=== PATIENT | female | born 1995 | race Hispanic/Latino ===

== ENCOUNTER 2016-09-06 08:13 | Emergency (ER) | payer OTHER ==
[~2016-09-06] VITALS: Ht 160 cm; Wt 74.4 kg
[2016-09-06] MEDS ORDERED: BIRTH CONTROL MEDS (08:39)
[2016-09-06] MEDS ORDERED: ONDANSETRON 4MG/2ML VIAL (J2405) IV ONE (09:15)
[2016-09-06] MEDS ORDERED: NS 1,000 ML IV ONE (09:15)
[2016-09-06] MEDS ORDERED: KETOROLAC 30 MG/ML VIAL (J1885) IV ONE (09:15)
[2016-09-06 09:29] LABS: BASO % 0.3 % (0.0-1.0); EOS % 0.7 % (0.0-3.0); LARGE UNSTAINED CELL # 0.1 K/mm3 (0.0-0.4); LARGE UNSTAINED CELL % 1.4 % (0.0-4.0); LYMPH # 2.2 K/mm3 (1.5-6.5); LYMPH % 34.6 % (24.0-44.0); MEAN CORPUSCULAR HEMOGLOBIN 29.1 pg (27.0-33.0); MEAN CORPUSCULAR HGB CONC 32.5 g/dl (32.0-36.5); MEAN CORPUSCULAR VOLUME 89.6 fl (80.0-96.0); MONO # 0.3 K/mm3 (0.0-0.8); MONO % 5.5 % (0.0-5.0); NEUTROPHILS # 3.6 K/mm3 (1.8-7.7); NEUTROPHILS % 57.5 % (36.0-66.0); PLATELET COUNT, AUTOMATED 293 k/mm3 (150-450); RED CELL DISTRIBUTION WIDTH 13.5 % (11.5-14.5); WHITE BLOOD COUNT 6.2 K/mm3 (4.0-10.0)
[2016-09-06 09:44] LABS: ALBUMIN 3.7 GM/DL (3.2-5.2); ALBUMIN/GLOBULIN RATIO 1.03 (1.00-1.93); ALKALINE PHOSPHATASE 60 U/L (45-117); ALT/SGPT 30 U/L (12-78); ANION GAP 8 MEQ/L (8-16); AST/SGOT 16 U/L (15-37); BILIRUBIN,TOTAL 0.5 MG/DL (0.2-1.0); BLOOD UREA NITROGEN 12 MG/DL (7-18); CALCIUM LEVEL 8.2 MG/DL (8.5-10.1); CARBON DIOXIDE LEVEL 27 MEQ/L (21-32); CHLORIDE LEVEL 106 MEQ/L (98-107); CREATININE FOR GFR 0.59 MG/DL (0.55-1.02); GLOMERULAR FILTRATION RATE > 60.0 (>60); GLUCOSE, FASTING 93 MG/DL (70-105); POTASSIUM SERUM 3.6 MEQ/L (3.5-5.1); SODIUM LEVEL 141 MEQ/L (136-145); TOTAL PROTEIN 7.3 GM/DL (6.4-8.2)
--- NOTE | 2016-09-06 10:18 | REP ---
Clinical: Pelvic pain and abnormal vaginal bleeding . Technique: Transabdominal pelvic ultrasound followed by transvaginal examination for better evaluation of the endometrium and adnexa with color Doppler evaluation of the ovaries. Findings: Bladder is collapsed . The uterus has a subseptate contour and appearance measuring 7.9 x 4.0 x 6.1 cm. The visualized right endometrial complex measures 7.3 mm thickness and the left endometrial complex measures 5.8 mm thickness. No discrete uterine or endometrial abnormalities are appreciated. Bilateral ovaries are normal in appearance and vascularity without evidence for torsion. Right ovary measures 4.2 x 2.3 x 3.4 cm ; R I = 0.59 . Left ovary measures 4.6 x 2.4 x 3.1 cm ; R I = 0.59 . Trace pelvic fluid. No adnexal mass lesion . Impression: 1. subseptate uterus appears otherwise normal. 2. Normal bilateral ovaries without torsion. Signed by Gerald Stewart MD 09/06/2016 10:09 A
[2016-09-06] MEDS ORDERED: ZOFR4TAB3 PO (10:47)
[2016-09-06] MEDS ORDERED: NAPR500T PO (10:47)
[2016-09-06 10:54] VITALS: BP 116/76
== END 2016-09-06 11:03 | disposition home or self-care (01) ==
LOC: M ED 08:56
DX: Q51.2 Other doubling of uterus (principal); N93.8 Other specified abnormal uterine and vaginal bleeding; N92.6 Irregular menstruation, unspecified; Z79.3 Long term (current) use of hormonal contraceptives
CPT/HCPCS: 76830; 76856; 80053; 81001; 81025; 85025; 87086; 93976; 96361; 96374; 99284; J1885; J2405